=== PATIENT | male | born 1965 | race Caucasian/White ===

== ENCOUNTER 2020-08-28 21:57 | Inpatient (IN) | payer OTHER ==
[~2020-08-28] VITALS: Ht 177.8 cm; Wt 153.8 kg
[2020-08-28 23:34] LABS: HEMOGLOBIN 13.6 gm/dl (14.0-17.5); RED BLOOD COUNT 4.31 M/UL (4.20-5.50)
[2020-08-29] LABS: BUN/CREATININE RATIO 20 (0-10)
--- NOTE | 2020-08-29 22:29 | NUR ---
PT VERY POOR HISTORIAN R/T COGNITIVE IMPAIRMENT. I TRIED TO REACH HIS SITER IN LAW WHO IS LISTED AT HIS EMERGENCY CONTACT TWICE. I WAS UNABLE TO REACH HER BOTH TIMES AND VOICEMAIL WAS NOT SET UP SO I WAS UNABLE TO LEAVE A MESSAGE. PT DOES NO KNOW WHAT MEDICATION HE TAKES AND THERE IS NO HISTORY IN DR. WILL PASS ON TO AM RN TO OBTAIN HOME MEDS FROM PHARMACY AND ATTEMPT TO VERIFY ALL HISTORY WITH NEXT OF [facility].
[2020-08-30 06:08] LABS: RED BLOOD COUNT 4.19 M/UL (4.20-5.50)
[2020-08-30 06:13] LABS: WHITE BLOOD COUNT 13.2 K/UL (4.5-11.0)
[2020-08-30 06:32] LABS: BUN/CREATININE RATIO 28 (0-10)
[2020-08-30] MEDS ORDERED: LOPRESSOR50 MG PO (11:52)
[2020-08-30] MEDS ORDERED: REMERON15 MG PO (11:52)
[2020-08-30] MEDS ORDERED: ASPIRIN EC81 MG PO (11:52)
[2020-08-30] MEDS ORDERED: HYDRALAZINE HCL50 MG PO (11:52)
[2020-08-30] MEDS ORDERED: NORVASC10 MG PO (11:53)
[2020-08-30] MEDS ORDERED: PROZAC40 MG PO (11:53)
[2020-08-30] MEDS ORDERED: LASIX40 MG PO (11:53)
[2020-08-30] MEDS ORDERED: PROTONIX40 MG PO (11:54)
[2020-08-30] MEDS ORDERED: K-DUR TAB 20 M20 MEQ PO (11:54)
[2020-08-31 04:03] LABS: HEMOGLOBIN 13.1 gm/dl (14.0-17.5); RED BLOOD COUNT 4.23 M/UL (4.20-5.50); WHITE BLOOD COUNT 12.7 K/UL (4.5-11.0)
[2020-08-31 04:20] LABS: BUN/CREATININE RATIO 31 (0-10)
[2020-08-31] MEDS ORDERED: VENTOLIN HFA 66.7 GM INH (11:19)
[2020-08-31] MEDS ORDERED: NITROSTAT0.4 MG SL (11:19)
[2020-09-01 03:28] LABS: HEMOGLOBIN 13.5 gm/dl (14.0-17.5); RED BLOOD COUNT 4.33 M/UL (4.20-5.50); WHITE BLOOD COUNT 11.8 K/UL (4.5-11.0)
[2020-09-01 03:52] LABS: BUN/CREATININE RATIO 31 (0-10)
[2020-09-02 03:22] LABS: HEMOGLOBIN 13.3 gm/dl (14.0-17.5); RED BLOOD COUNT 4.27 M/UL (4.20-5.50); WHITE BLOOD COUNT 10.3 K/UL (4.5-11.0)
[2020-09-02 03:52] LABS: BUN/CREATININE RATIO 34 (0-10)
[2020-09-02] MEDS ORDERED: IPRAT-ALBUT 0.5-3 ML INH (08:37)
[2020-09-02] MEDS ORDERED: SPIRIVA RESPIMAT4 GM INH (08:37)
[2020-09-02] MEDS ORDERED: SYMBICORT 16010.2 GM INH (08:37)
--- NOTE | 2020-09-02 10:10 | NUR ---
0945 02 Sat 98% on room air.
== END 2020-09-02 13:31 | disposition home or self-care (01) | DRG 189 ==
LOC: ER1 21:57 → M/S 08-29 08:20 → CDU 08-29 08:20 → M/S 08-29 20:45
PROVIDERS: Emergency Medicine; Physician Assistant Medical; ADMIT Internal Medicine
PROC: B24BZZZ Ultrasonography of Heart with Aorta (ICD-10-PCS; principal; 2020-09-01)
DX: J96.21 Acute and chronic respiratory failure with hypoxia (principal); J44.1 Chronic obstructive pulmonary disease with (acute) exacerbation; I50.32 Chronic diastolic (congestive) heart failure; J44.0 Chronic obstructive pulmonary disease with (acute) lower respiratory infection; Z20.822 Contact with and (suspected) exposure to COVID-19; J20.9 Acute bronchitis, unspecified; E78.5 Hyperlipidemia, unspecified; R60.9 Edema, unspecified; I11.0 Hypertensive heart disease with heart failure; F17.210 Nicotine dependence, cigarettes, uncomplicated; I27.20 Pulmonary hypertension, unspecified; Z79.82 Long term (current) use of aspirin; Z82.49 Family history of ischemic heart disease and other diseases of the circulatory system; Z99.81 Dependence on supplemental oxygen; Z88.0 Allergy status to penicillin; Z79.899 Other long term (current) drug therapy
CPT/HCPCS: ECHO; 0240U; 36415; 36600; 71045; 80048; 80053; 82550; 82553; 82803; 82962; 83735; 83874; 83880; 84484; 85025; 85027; 85610; 85730; 93005; 93306; 94640; 94664; 94760; 96365; 96375; 96376; 99285; J0456; J0696; J1650; J2930; J7030; J7050